=== PATIENT | male | born 1985 | race Hispanic/Latino ===

== ENCOUNTER 2018-03-18 14:35 | Emergency (ER) | payer SELFPAY ==
--- NOTE | 2018-03-18 15:18 | ER ---
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 Transition of care: patient was not received from another setting of care. Onset of symptoms was March 18, 2018. Risk Assessment: Do you want to hurt yourself or someone else? Patient reports no desire to harm self or others. Initial Sepsis Screen: Does the patient meet any 2 criteria? No. Patient's initial sepsis screen is negative. Does the patient have a suspected source of infection? No. Patient's initial sepsis screen is negative. Care prior to arrival: None. 14:49 Method Of Arrival: Ambulatory 14:49 Acuity: HILLARY 4 sg Historical: - Allergies: 14:48 No Known Allergies; sg - Home Meds: 14:48 None [Active]; sg - PMHx: 14:48 None; sg - PSHx: 14:48 None; sg - Immunization history:: Adult Immunizations not up to date. - Social history:: Smoking status: Patient/guardian denies using tobacco. - Ebola Screening: : Patient negative for fever greater than or equal to 101.5 degrees Fahrenheit, and additional compatible Ebola Virus Disease symptoms Patient denies exposure to infectious person Patient denies travel to an Ebola-affected area in the 21 days before illness onset No symptoms or risks identified at this time. Screenin:57 Abuse screen: Denies threats or abuse. Denies injuries from another. Nutritional ph screening: No deficits noted. Tuberculosis screening: No symptoms or risk factors identified. Fall Risk None identified. Assessment: 15:00 General: Appears in no apparent distress. comfortable, well groomed, Behavior is calm, ph cooperative, appropriate for age. Pain: Complains of pain in right knee. Neuro: Level of Consciousness is awake, alert, obeys commands, Oriented to person, place, time, situation. Cardiovascular: Capillary refill < 3 seconds in bilateral fingers Patient's skin is warm and dry. Respiratory: Airway is patent Respiratory effort is even, unlabored, Respiratory pattern is regular, symmetrical. Derm: Skin is intact, is healthy with good turgor, Skin is pink, warm \T\ dry. Musculoskeletal: Circulation, motion, and sensation intact. Range of motion: limited in right knee. Vital Signs: 14:48 BP 140 / 84; Pulse 77; Resp 14 S; Temp 98.3(TE); Pulse Ox 100% on R/A; Weight 90.72 kg; sg Height 5 ft. 5 in. (165.10 cm) (R); Pain 3/10; 14:48 Body Mass Index 33.28 (90.72 kg, 165.10 cm) ED Course: 14:37 Patient arrived in ED. sb2 14:38 None, None is Private Physician. sb2 14:49 [facility] snw 14:49 Shaquille Kong MD is Attending Physician. snw 14:50 Triage completed. sg 14:50 Arm band placed on. sg 15:00 Coty Morataya, RN is Primary Nurse. ph 15:00 Patient has correct armband on for positive identification. Call light in reach. ph 15:50 No provider procedures requiring assistance completed. Patient did not have IV access ph during this emergency room visit. Administered Medications: No medications were administered Outcome: 15:17 Discharge ordered by . snw 15:50 Patient left the ED. ph 15:50 Discharged to home ambulatory. ph 15:50 Condition: good 15:50 Discharge instructions given to patient, Instructed on discharge instructions, follow up and referral plans. medication usage, Demonstrated understanding of instructions, follow-up care, medications, Prescriptions given X 2. Signatures: Tal Beard RN RN Callie Deras FNP-C FNP-Coty Baker RN RN Zara Ovalle sb2
--- NOTE | 2018-03-18 15:18 | EDPHYS ---
Physician Documentation [facility] Name: Arnulfo Ferro Age: 32 yrs Sex: Male : 1985 Arrival Date: 03/18/2018 Time: 14:37 Bed 15 Private MD: None, None ED Physician Shaquille Kong HPI: 03/18 15:28 This 32 yrs old Male presents to ER via Ambulatory with complaints of Knee snw Pain. 15:28 The patient presents with pain. Context: The problem was sustained at an unknown site, snw resulted from an unknown cause, the patient can fully bear weight, the patient is able to ambulate, uses a brace. Onset: The symptoms/episode began/occurred 2 year(s) ago, and became worse 4 day(s) ago. Associated signs and symptoms: The patient has no apparent associated signs or symptoms. Treatment prior to arrival includes: over the counter medications, splinting the affected extremity. Severity of symptoms: At their worst the symptoms were very mild. The patient has experienced similar episodes in the past. It is unknown whether or not the patient has recently seen a physician. Historical: - Allergies: 14:48 No Known Allergies; sg - Home Meds: 14:48 None [Active]; sg - PMHx: 14:48 None; sg - PSHx: 14:48 None; sg - Immunization history:: Adult Immunizations not up to date. - Social history:: Smoking status: Patient/guardian denies using tobacco. - Ebola Screening: : Patient negative for fever greater than or equal to 101.5 degrees Fahrenheit, and additional compatible Ebola Virus Disease symptoms Patient denies exposure to infectious person Patient denies travel to an Ebola-affected area in the 21 days before illness onset No symptoms or risks identified at this time. ROS: 15:26 Constitutional: Negative for fever, chills, and weight loss, Eyes: Negative for injury, snw pain, redness, and discharge, ENT: Negative for injury, pain, and discharge, Neck: Negative for injury, pain, and swelling, Cardiovascular: Negative for chest pain, palpitations, and edema, Respiratory: Negative for shortness of breath, cough, wheezing, and pleuritic chest pain, Abdomen/GI: Negative for abdominal pain, nausea, vomiting, diarrhea, and constipation, Back: Negative for injury and pain, Skin: Negative for injury, rash, and discoloration, Neuro: Negative for headache, weakness, numbness, tingling, and seizure, Psych: Negative for depression, anxiety, suicide ideation, homicidal ideation, and hallucinations. 15:26 MS/extremity: Positive for pain, of the right knee. Exam: 15:25 Constitutional: This is a well developed, well nourished patient who is awake, alert, snw and in no acute distress. Head/Face: Normocephalic, atraumatic. Eyes: Pupils equal round and reactive to light, extra-ocular motions intact. Lids and lashes normal. Conjunctiva and sclera are non-icteric and not injected. Cornea within normal limits. Periorbital areas with no swelling, redness, or edema. ENT: Nares patent. No nasal discharge, no septal abnormalities noted. Tympanic membranes are normal and external auditory canals are clear. Oropharynx with no redness, swelling, or masses, exudates, or evidence of obstruction, uvula midline. Mucous membranes moist. Neck: Trachea midline, no thyromegaly or masses palpated, and no cervical lymphadenopathy. Supple, full range of motion without nuchal rigidity, or vertebral point tenderness. No Meningismus. Chest/axilla: Normal chest wall appearance and motion. Nontender with no deformity. No lesions are appreciated. Cardiovascular: Regular rate and rhythm with a normal S1 and S2. No gallops, murmurs, or rubs. Normal PMI, no JVD. No pulse deficits. Respiratory: Lungs have equal breath sounds bilaterally, clear to auscultation and percussion. No rales, rhonchi or wheezes noted. No increased work of breathing, no retractions or nasal flaring. Abdomen/GI: Soft, non-tender, with normal bowel sounds. No distension or tympany. No guarding or rebound. No evidence of tenderness throughout. Back: No spinal tenderness. No costovertebral tenderness. Full range of motion. Skin: Warm, dry with normal turgor. Normal color with no rashes, no lesions, and no evidence of cellulitis. Neuro: Awake and alert, GCS 15, oriented to person, place, time, and situation. Cranial nerves II-XII grossly intact. Motor strength 5/5 in all extremities. Sensory grossly intact. Cerebellar exam normal. Normal gait. Psych: Awake, alert, with orientation to person, place and time. Behavior, mood, and affect are within normal limits. 15:25 Musculoskeletal/extremity: Extremities: grossly normal except: noted in the right knee: ROM: intact in all extremities, Circulation is intact in all extremities. Vital Signs: 14:48 BP 140 / 84; Pulse 77; Resp 14 S; Temp 98.3(TE); Pulse Ox 100% on R/A; Weight 90.72 kg; sg Height 5 ft. 5 in. (165.10 cm) (R); Pain 3/10; 14:48 Body Mass Index 33.28 (90.72 kg, 165.10 cm) sg MDM: 14:50 Patient medically screened. snw 15:27 Data reviewed: vital signs, nurses notes. Data interpreted: Pulse oximetry: on room air snw is 100 %. Interpretation: normal. Counseling: I had a detailed discussion with the patient and/or guardian regarding: the historical points, exam findings, and any diagnostic results supporting the discharge/admit diagnosis, the presence of at least one elevated blood pressure reading (>120/80) during this emergency department visit, the need for outpatient follow up, to return to the emergency department if symptoms worsen or persist or if there are any questions or concerns that arise at home. Special discussion: Based on the history and exam findings, there is no indication for further emergent testing or inpatient evaluation. I discussed with the patient/guardian the need to see the orthopedic surgeon for further evaluation of the symptoms. Administered Medications: No medications were administered Disposition: 03/19 06:45 Co-signature as Attending Physician, Shaquille Kong MD I agree with the assessment and del plan of care. Disposition: 03/18/18 15:17 Discharged to Home. Impression: Pain in right knee. - Condition is Stable. - Discharge Instructions: Joint Pain, Knee Pain, Cryotherapy, [id number]. - Prescriptions for Diclofenac Sodium 75 mg Oral Tablet Sustained Release - take 1 tablet by ORAL route 2 times per day; 30 tablet. orphenadrine citrate 100 mg Oral Tablet Sustained Release - take 1 tablet by ORAL route 2 times per day As needed; 20 tablet. - Work release form, Medication Reconciliation Form, Thank You Letter, Antibiotic Education, Prescription Opioid Use form. - Follow up: Private Physician; When: As needed; Reason: Recheck today's complaints, Continuance of care. Signatures: Tal Beard, RN RN Shaquille Will MD MD cha Therrien, Shelly, DOOR FRAMER-C DOOR FRAMER-Csnw Coty Morataya, RN RN ph Corrections: (The following items were deleted from the chart) 03/18 15:50 15:17 03/18/2018 15:17 Discharged to Home. Impression: Pain in right knee. Condition is ph Stable. Forms are Medication Reconciliation Form, Thank You Letter, Antibiotic Education, Prescription Opioid Use. Follow up: Private Physician; When: As needed; Reason: Recheck today's complaints, Continuance of care. snw
[2018-03-18] MEDS ORDERED: LACTULOSE 20 GM/30 ML UCUP ONE (16:14)
[2018-03-18] MEDS ORDERED: BISACODYL 10 MG RECTAL SUPP ONE (16:14)
[2018-03-18] MEDS ORDERED: NA CHLORIDE 0.9% 1,000 ML ONE (16:14)
== END 2018-03-18 15:50 | disposition home or self-care (01) ==
LOC: ER 14:35
DX: M25.561 Pain in right knee (principal)
CPT/HCPCS: 99282; J7030